=== PATIENT | female | born 1975 | race Caucasian/White ===

== ENCOUNTER 2017-05-01 18:44 | Emergency (ER) | payer OTHER ==
[~2017-05-01] VITALS: Ht 165.1 cm; Wt 77.1 kg
[~2017-05-01 18:44] MED LIST: LORA2 PO; Norco 5-325 Ta1 EACH PO
== END 2017-05-01 20:32 | disposition home or self-care (01) ==
LOC: ER 18:44
DX: L98.9 Disorder of the skin and subcutaneous tissue, unspecified (principal); F41.9 Anxiety disorder, unspecified; F32.9 Major depressive disorder, single episode, unspecified; F17.200 Nicotine dependence, unspecified, uncomplicated; Z90.49 Acquired absence of other specified parts of digestive tract; Z98.51 Tubal ligation status; Z98.890 Other specified postprocedural states
CPT/HCPCS: 99282

== ENCOUNTER → 2017-05-08 | Outpatient (CLI) | payer OTHER | LOC: LAB 13:33 | DX: R19.7 Diarrhea, unspecified (principal) | CPT/HCPCS: 87177; 87209 ==